=== PATIENT | female | born 1940 | race Caucasian/White ===

== ENCOUNTER 2016-11-17 09:33 | Emergency (ER) | payer MEDICARE, BC ==
[2016-11-17 10:10] VITALS: BP 146/78
--- NOTE | 2016-11-17 10:18 | EDM.PDOC ---
[id number] TO STERIOD INJECTION Time Seen by Provider: 11/17/16 10:00 Source: Reports: Patient History Limitations: Reports: No limitations - History of Present Illness INITIAL COMMENTS - FREE TEXT/NARRATIVE: 75-year-old female received several thoracic steroid injections for local pain yesterday, this morning her face feels flushed and her thought it looked erythematous. She was concerned she may be having an allergic reaction to the shots so came in to be seen. She has no other symptoms, no shortness of breath, chest pain, palpitations, hives or rash elsewhere Location, Skin: Reports: face Characteristics: Reports: erythematous Associated symptoms: Reports: denies other symptoms - Related Data Allergies/ADRs: Allergies Allergy/AdvReac Type Severity Reaction Status Date / Time codeine Allergy Hives Verified 11/02/16 08:50 Iodinated Contrast Media - Allergy Hives Verified 11/02/16 08:50 Oral and [Iodinated Contrast Media - IV Dye] Sulfa (Sulfonamide Allergy Hives Verified 11/02/16 08:50 Antibiotics) thimerosal Allergy Hives Verified 11/02/16 08:50 Home Meds: Home Meds Aspirin [Adult Low Dose Aspirin EC] 81 mg PO DAILY 08/06/13 [History] Gabapentin [Neurontin] 300 mg PO BID 08/06/13 [History] [place]-3 Fatty Acids [Fish Oil] 500 mg PO DAILY 08/06/13 [History] Omeprazole 20 mg PO DAILY 08/06/13 [History] Simvastatin [Zocor] 40 mg PO BEDTIME 08/06/13 [History] Lidocaine 5% [Lidoderm 5%] 1 patch TOP BEDTIME PRN 10/18/13 [History] Cholecalciferol (Vitamin D3) [Vitamin D3] 1,000 unit PO DAILY 06/03/16 [History] Triamterene/Hydrochlorothiazid [Triamterene-HCTZ 37.5-25 MG] 0.5 tab PO DAILY [History] Lactobacillus Acidophilus [Probiotic] 1 cap PO DAILY 06/06/16 [History] Past Medical History HEENT History: Reports: Impaired vision Cardiovascular History: Reports: High cholesterol, Hypertension, Pacemaker Musculoskeletal History: Reports: Back pain, chronic Other Musculoskeletal History: R shoulder pain Oncologic (Cancer) History: Reports: Breast Other Oncologic History: BREAST CA 20 YEARS AGO Other Dermatologic History: FACE FLUSH - Past Surgical History Female Surgical History: Reports: Other (see below) Other Female Surgeries/Procedures: CORNELL MASTECTOMY Other Musculoskeletal Surgeries/Procedures:: YESTERDAY HAD STERIODS INJECTION IS QUESTIONING ALLERGIC REACTION FACE FLUSH Social & Family History - Tobacco Use Smoking Status *Q: Never Smoker Second Hand Smoke Exposure: No - Caffeine Use Caffeine Use: Reports: Coffee - Alcohol Use Days Per Week of Alcohol Use: 0 - Recreational Drug Use Recreational Drug Use: No ED ROS ALLERGIC REACTION - Review of Systems Review Of Systems: See Below Constitutional: Denies: fever, chills Respiratory: Denies: Shortness of Breath Cardiovascular: Denies: Chest pain GI/Abdominal: Denies: Abdominal pain, Nausea, Vomiting Musculoskeletal: Reports: back pain (Chronic) Skin: Reports: rash, erythema (Of the face and forehead only) Neurological: Reports: No Symptoms ED EXAM GENERAL NO PERIP PULSE - Physical Exam Exam: See Below Exam Limited By: No limitations General Appearance: alert, no apparent distress Throat/Mouth: Normal inspection Head: atraumatic Neck: normal inspection Respiratory/Chest: no respiratory distress, lungs clear Cardiovascular: regular rate, rhythm Neurological: alert, oriented Psychiatric: normal affect, normal mood Skin Exam: Warm, Dry, Erythema (There is some erythema over the face bilaterally and forehead, no warmth) Course - Vital Signs Last Recorded V/S: Last Vital Signs Temp 99.1 F 11/17/16 09:45 Pulse 96 11/17/16 09:45 Resp 18 11/17/16 09:45 BP 146/78 H 11/17/16 09:45 Pulse Ox - Re-Assessments/Exams Free Text/Narrative Re-Assessment/Exam: 11/17/16 10:18 Explained to the patient that this is more likely a side effect rather than an allergic reaction. Cool compresses may help but I would avoid further medications to treat this mild reaction. In the future injections will have to be weighed with the benefits versus side effects. Departure - Departure Time of Disposition: 11:31 Disposition: Home, Self-Care 01 Condition: good Clinical Impression: Facial erythema, Medication side effects Referrals: Ashley Sapp MD [Primary Care Provider] - Forms: ED Department Discharge Care Plan Goals: Cool compresses to the face may help, return anytime if worsening such as more widespread reaction or difficulty breathing. Further injections may continue but side effects are to be expected and benefits will have to be weighed against any potential further side effects.
== END 2016-11-17 11:05 | disposition home or self-care (01) ==
LOC: JP.ED 09:33
DX: L53.0 Toxic erythema (principal); T38.0X5A Adverse effect of glucocorticoids and synthetic analogues, initial encounter; E78.00 Pure hypercholesterolemia, unspecified; I10 Essential (primary) hypertension; Z79.899 Other long term (current) drug therapy; Z88.5 Allergy status to narcotic agent; Z91.041 Radiographic dye allergy status; Z88.2 Allergy status to sulfonamides; Z88.8 Allergy status to other drugs, medicaments and biological substances; Z79.82 Long term (current) use of aspirin
CPT/HCPCS: 99282; 99283

== ENCOUNTER 2017-02-21 07:37 | Day surgery (SDC) | payer MEDICARE, BC ==
[2017-02-21] MEDS ORDERED: Dextrose 5%-Lactated Ringers 1,000 ML IV SCH (08:15)
[2017-02-21] MEDS ORDERED: Propofol 200 MG/20 ML SDV ONE ×2 (09:02→09:06)
[2017-02-21] MEDS ORDERED: fentaNYL 100 MCG/2 ML SDV ONE ×3 (09:03→09:07)
[2017-02-21] MEDS ORDERED: Midazolam 1 MG/ML 2 ML SDV ONE (09:06)
[2017-02-21] MEDS ORDERED: Ondansetron 4 MG/2 ML SDV ONE (10:01)
[2017-02-21] MEDS ORDERED: Ondansetron 4 MG/2 ML SDV IVPUSH ONE (11:00)
[2017-02-21] MEDS ORDERED: Scopolamine 1.5 MG Transdermal Patch TRDERM PRN (12:52)
[2017-02-21 12:55] VITALS: BP 106/64
[2017-02-21] MEDS ORDERED: Metoclopramide 10 MG/2 ML SDV IVPUSH ONE (13:00)
--- NOTE | 2017-02-24 08:36 | OR ---
DATE OF PROCEDURE: 02/21/2017 PREOPERATIVE DIAGNOSIS: Family history of colon carcinoma. POSTOPERATIVE DIAGNOSES: 1. Family history of colon carcinoma with single small polyp located at splenic flexure. 2. Extensive uncomplicated left colonic diverticulosis. OPERATIVE PROCEDURE: Flexible colonoscopy with polypectomy by snare technique ([id number]). ANESTHESIA: IV sedation. INDICATION FOR PROCEDURE: This is a 76-year-old female presenting for follow-up colonoscopy. She has a strong family history of colon carcinoma and the plan is to proceed with colonoscopy with biopsies and/or polypectomy as indicated. Potential risks including bleeding and perforation were discussed, and the patient wishes to proceed. DETAILS OF PROCEDURE: The patient was taken to the operating room and placed in a left lateral decubitus position. IV sedation was administered, after which the colonoscope was passed into the rectum with retroflexion revealing uncomplicated hemorrhoidal columns. The scope was eventually passed to the level of the cecum. The prep was fairly good. There was only a small amount of liquid stool present. The patient was noted to have quite extensive left colonic diverticulosis, but this was otherwise uncomplicated. There was noted to be a single small polyp roughly around 3-4 mm in the splenic flexure. Apart from that, there were no additional areas of polyps or other signs of neoplasia or colitis. As one came back from the cecum, the polyp was once again encountered and this encircled at its base with the snare and cauterized off. This was aspirated and sent this for histologic evaluation. Good hemostasis was noted at the polypectomy site. The remainder of the exam was otherwise unremarkable and the procedure then concluded. The patient was taken to the recovery room in satisfactory condition. Plan will be to give the patient a call with regard to the pathology report. If this is an adenomatous polyp, one would probably need to repeat the colonoscopy in 1-2 years. Otherwise, if it is hyperplastic polyp, we will then go ahead with 5-year followup unless patient's general condition is not more tenuous than present. Eamon Valentin MD /[id number]
== END 2017-02-21 13:19 | disposition home or self-care (01) ==
LOC: JP.SDS 07:37
PROVIDERS: ATTEND Surgery
DX: Z12.11 Encounter for screening for malignant neoplasm of colon (principal); K63.5 Polyp of colon; K57.30 Diverticulosis of large intestine without perforation or abscess without bleeding; I10 Essential (primary) hypertension; E78.5 Hyperlipidemia, unspecified; K21.9 Gastro-esophageal reflux disease without esophagitis; Z80.0 Family history of malignant neoplasm of digestive organs; Z88.1 Allergy status to other antibiotic agents; Z88.2 Allergy status to sulfonamides; Z91.041 Radiographic dye allergy status; Z88.8 Allergy status to other drugs, medicaments and biological substances
CPT/HCPCS: 45385; A9270; J2250; J2405; J2704; J3010; J7042; 88305

== ENCOUNTER 2017-12-10 09:20 | Emergency (ER) | payer MEDICARE, BC ==
[2017-12-10 10:13] VITALS: BP 144/82
--- NOTE | 2017-12-10 10:36 | EDM.PDOC ---
ED HPI GENERAL MEDICAL PROBLEM - General Chief Complaint: Genitourinary Problem Stated Complaint: RECURRENT UTI Time Seen by Provider: 12/10/17 10:15 Source of Information: Reports: Patient History Limitations: Reports: No Limitations - History of Present Illness INITIAL COMMENTS - FREE TEXT/NARRATIVE: 77-year-old female was recently diagnosed with a UTI, started on cephalexin for a culture result of Escherichia coli. She finished her antibiotic 3 days ago and feels his symptoms are coming back. No fevers or chills, no back pain, chest some urinary frequency and slight pressure sensation. Onset: Gradual (Over the past few days) - Related Data Allergies Allergy/AdvReac Type Severity Reaction Status Date / Time amoxicillin [From Augmentin] Allergy Cannot Verified 02/21/17 08:09 Remember clavulanic acid Allergy Cannot Verified 02/21/17 08:09 [From Augmentin] Remember codeine Allergy Hives Verified 02/21/17 08:09 fluticasone [From Flonase] Allergy Cannot Verified 02/21/17 08:09 Remember Iodinated Contrast- Oral and Allergy Hives Verified 02/21/17 08:09 IV Dye [Iodinated Contrast Media - IV Dye] Sulfa (Sulfonamide Allergy Hives Verified 02/21/17 08:09 Antibiotics) thimerosal Allergy Hives Verified 02/21/17 08:09 Home Meds: Home Meds Aspirin [Adult Low Dose Aspirin EC] 81 mg PO DAILY 08/06/13 [History] Gabapentin [Neurontin] 900 mg PO BID 08/06/13 [History] [place]-3 Fatty Acids [Fish Oil] 500 mg PO BID 08/06/13 [History] Omeprazole 20 mg PO DAILY 08/06/13 [History] Simvastatin [Zocor] 40 mg PO BEDTIME 08/06/13 [History] Lidocaine 5% [Lidoderm 5%] 1 patch TOP BEDTIME PRN 10/18/13 [History] Cholecalciferol (Vitamin D3) [Vitamin D3] 5,000 unit PO DAILY 06/03/16 [History] Triamterene/Hydrochlorothiazid [Triamterene-HCTZ 37.5-25 MG] 0.5 tab PO DAILY [History] Lactobacillus Acidophilus [Probiotic] 1 cap PO DAILY 06/06/16 [History] Loratadine [Claritin] 10 mg PO DAILY 02/07/17 [History] Triamcinolone Acetonide [Kenalog 0.1% Crm] 1 applic TOP BID 02/07/17 [History] Ubidecarenone [Coenzyme Q10] 100 mg PO DAILY 02/07/17 [History] Latanoprost [Xalatan 0.005% Ophth Soln] 2.5 ml EYEBOTH BEDTIME 02/21/17 [History ] Past Medical History HEENT History: Reports: Allergic Rhinitis, Cataract, Impaired Vision Cardiovascular History: Reports: High Cholesterol, Hypertension, Pacemaker Gastrointestinal History: Reports: Cholelithiasis, Chronic Constipation, Colon Polyp, GERD Genitourinary History: Reports: UTI, Recurrent 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, Fibroids, Musculoskeletal History: Reports: Arthritis, Back Pain, Chronic, Neck Pain, Chronic Other Musculoskeletal History: R shoulder pain Endocrine/Metabolic History: Reports: Obesity/BMI 30+ Oncologic (Cancer) History: Reports: Breast Other Oncologic History: BREAST CA 20 YEARS AGO Dermatologic History: Reports: Eczema Other Dermatologic History: FACE FLUSH - Infectious Disease History Infectious Disease History: Reports: Chicken Pox, Mumps - Past Surgical History HEENT Surgical History: Reports: Adenoidectomy, Cataract Surgery, Tonsillectomy Cardiovascular Surgical History: Reports: Pacer GI Surgical History: Reports: Appendectomy, Cholecystectomy, Colonoscopy Female Surgical History: Reports: Breast Biopsy, Hysterectomy, Mastectomy Endocrine Surgical History: Reports: None Musculoskeletal Surgical History: Reports: None Oncologic Surgical History: Reports: Biopsy of Breast, Mastectomy Dermatological Surgical History: Reports: None Social & Family History - Tobacco Use Smoking Status *Q: Never Smoker - Caffeine Use Caffeine Use: Reports: Coffee, Soda, Tea ED ROS GENERAL - Review of Systems Review Of Systems: See Below Constitutional: Denies: Fever, Chills Respiratory: Denies: Shortness of Breath GI/Abdominal: Denies: Abdominal Pain, Nausea, Vomiting : Reports: Urgency. Denies: Dysuria Skin: Reports: No Symptoms Neurological: Reports: No Symptoms ED EXAM, RENAL/ - Physical Exam Exam: See Below Exam Limited By: No Limitations General Appearance: Alert, No Apparent Distress Respiratory/Chest: No Respiratory Distress GI/Abdominal: Non-Tender Back Exam: No: CVA Tenderness (R), CVA Tenderness (L) Neurological: Alert, Oriented Psychiatric: Normal Affect, Normal Mood Skin Exam: Warm, Dry Course - Vital Signs Last Recorded V/S: Last Vital Signs Temp 98.3 F 12/10/17 10:20 Pulse 93 12/10/17 10:20 Resp 18 12/10/17 10:20 BP 144/82 H 12/10/17 10:20 Pulse Ox 97 12/10/17 10:20 - Orders/Labs/Meds Orders: Active Orders 24 hr Category Date Time Status CULTURE URINE [RM] Stat Lab 12/10/17 10:48 Received UA W/MICROSCOPIC [URIN] Urgent Lab 12/10/17 10:29 Ordered Labs: Laboratory Tests 12/10/17 Range/Units 10:29 Urine Color Yellow Urine Appearance Cloudy Urine pH 8.0 (4.5-8.0) Ur Specific [place] 1.015 (1.008-1.030) Urine Protein Negative (NEGATIVE) mg/dL Urine Glucose (UA) Normal (NEGATIVE) mg/dL Urine Ketones Negative (NEGATIVE) mg/dL Urine Occult Blood Large (NEGATIVE) Urine Nitrite Negative (NEGATIVE) Urine Bilirubin Negative (NEGATIVE) Urine Urobilinogen Normal (NORMAL) mg/dL Ur Leukocyte Esterase Large (NEGATIVE) Urine RBC 20-30 H (0-5) Urine WBC Packed H (0-5) Ur Epithelial Cells Rare Amorphous Sediment Not seen Urine Bacteria Few Urine Mucus Not seen - Re-Assessments/Exams Free Text/Narrative Re-Assessment/Exam: 12/10/17 10:35 A catheter UA was obtained for accuracy. 12/10/17 10:46 UA was abnormal with packed WBCs, 20-30 RBCs and a few bacteria. This was cultured. Patient was placed on ciprofloxacin 500 twice daily for 5 days which has worked well for her in the past and we will be in touch with her with culture results in a few days if changes are needed. Departure - Departure Time of Disposition: 11:06 Disposition: Home, Self-Care 01 Condition: Good Clinical Impression: UTI, Urinary tract infectious disease - Discharge Information Instructions: Urinary Tract Infection, Adult Referrals: Simon Chavez MD [Primary Care Provider] - Forms: ED Department Discharge Care Plan Goals: Take antibiotic twice daily for 5 days, drink lots of water and continue Pyridium if needed. Return if worsening such as fever, increased pain, or vomiting the medication. We will contact you in 2-3 days if changes are necessary. - My Orders Last 24 Hours: My Active Orders 12/10/17 10:29 UA W/MICROSCOPIC [URIN] Urgent 12/10/17 10:48 CULTURE URINE [RM] Stat - Assessment/Plan Last 24 Hours: My Active Orders 12/10/17 10:29 UA W/MICROSCOPIC [URIN] Urgent 12/10/17 10:48 CULTURE URINE [RM] Stat
== END 2017-12-10 11:06 | disposition home or self-care (01) ==
LOC: JP.ED 09:20
DX: N39.0 Urinary tract infection, site not specified (principal); I10 Essential (primary) hypertension; E78.00 Pure hypercholesterolemia, unspecified; Z79.899 Other long term (current) drug therapy; Z79.82 Long term (current) use of aspirin; Z88.1 Allergy status to other antibiotic agents; Z88.2 Allergy status to sulfonamides; Z88.8 Allergy status to other drugs, medicaments and biological substances; Z88.5 Allergy status to narcotic agent; Z91.041 Radiographic dye allergy status
CPT/HCPCS: 81001; 87086; 87088; 87186; 99284

== ENCOUNTER 2019-04-27 13:42 | Emergency (ER) | payer MEDICARE, BC ==
[2019-04-27 14:06] VITALS: BP 142/65; PULSE 83
--- NOTE | 2019-04-27 15:18 | EDM.PDOC ---
ED HPI GENERAL MEDICAL PROBLEM - General Chief Complaint: Genitourinary Problem Stated Complaint: CONCERNED ABOUT UTI Time Seen by Provider: 04/27/19 15:00 Source of Information: Reports: Patient History Limitations: Reports: No Limitations - History of Present Illness INITIAL COMMENTS - FREE TEXT/NARRATIVE: 78 yo female presents to ER for concern regarding recurrent UTI which started with urinary frequency overnight. She had to getup to urinate 2-3 times more than usual. She noted a headache this am which has improved without intervention. Tatiana has ahd 3 urinary tract infections over the course of the last 1-2 year. Patient's last UTI was 6 or more months ago and was treated with an alternate antibiotic without improvement and needed to be change to Ciprofloxacin. Patient is aware of the risks with Ciprofloxacin but states nothing else seems to work. Patient is allergy to Sulfa Antibiotics and PCN which limits treatment options a bit more. Patient denies renal insufficiencies and aortic aneurysms. Patient has burning and urgency this which is similar to symptoms in the past with infections. Patient had one episode of kidney infection and chronic back pain, patient denies new or worsening back pain at this time. Patient denies fever, nausea or vomiting or any additional concerning symptoms. - Related Data Allergies Allergy/AdvReac Type Severity Reaction Status Date / Time amoxicillin [From Augmentin] Allergy Cannot Verified 04/27/19 14:31 Remember clavulanic acid Allergy Cannot Verified 04/27/19 14:31 [From Augmentin] Remember codeine Allergy Hives Verified 04/27/19 14:31 fluticasone [From Flonase] Allergy Cannot Verified 04/27/19 14:31 Remember Iodinated Contrast Media Allergy Hives Verified 04/27/19 14:31 [Iodinated Contrast Media - IV Dye] Sulfa (Sulfonamide Allergy Hives Verified 04/27/19 14:31 Antibiotics) thimerosal Allergy Hives Verified 04/27/19 14:31 Home Meds: Home Meds Aspirin [Adult Low Dose Aspirin EC] 81 mg PO DAILY 08/06/13 [History] Gabapentin [Neurontin] 900 mg PO BID 08/06/13 [History] [place]-3 Fatty Acids [Fish Oil] 500 mg PO BID 08/06/13 [History] Omeprazole 20 mg PO DAILY 08/06/13 [History] Simvastatin [Zocor] 40 mg PO BEDTIME 08/06/13 [History] Lidocaine 5% [Lidoderm 5%] 1 patch TOP BEDTIME PRN 10/18/13 [History] Triamterene/Hydrochlorothiazid [Triamterene-HCTZ 37.5-25 MG] 0.5 tab PO DAILY [History] Lactobacillus Acidophilus [Probiotic] 1 cap PO DAILY 06/06/16 [History] Loratadine [Claritin] 10 mg PO DAILY 02/07/17 [History] Dorzolamide/Timolol [Cosopt 2%-0.5% Ophth Soln] 1 drop EYEBOTH DAILY 04/12/19 [ History] Ciprofloxacin [Ciprofloxacin HCl] 500 mg PO BID 7 Days #14 tab 04/27/19 [Rx] Past Medical History HEENT History: Reports: Allergic Rhinitis, Cataract, Impaired Vision Cardiovascular History: Reports: High Cholesterol, Hypertension, Pacemaker Respiratory History: Reports: None Gastrointestinal History: Reports: Cholelithiasis, Chronic Constipation, Colon Polyp, GERD Genitourinary History: Reports: UTI, Recurrent 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, Fibroids, Musculoskeletal History: Reports: Arthritis, Back Pain, Chronic, Neck Pain, Chronic Other Musculoskeletal History: R shoulder pain Neurological History: Reports: None Psychiatric History: Reports: None Endocrine/Metabolic History: Reports: Obesity/BMI 30+ Hematologic History: Reports: None Immunologic History: Reports: None Oncologic (Cancer) History: Reports: Breast Other Oncologic History: BREAST CA 20 YEARS AGO Dermatologic History: Reports: Eczema Other Dermatologic History: FACE FLUSH - Infectious Disease History Infectious Disease History: Reports: Chicken Pox, Mumps - Past Surgical History Head Surgeries/Procedures: Reports: None HEENT Surgical History: Reports: Adenoidectomy, Cataract Surgery, Tonsillectomy Cardiovascular Surgical History: Reports: Pacer GI Surgical History: Reports: Appendectomy, Cholecystectomy, Colonoscopy Female Surgical History: Reports: Breast Biopsy, Hysterectomy, Mastectomy Musculoskeletal Surgical History: Reports: None Oncologic Surgical History: Reports: Biopsy of Breast, Mastectomy Social & Family History - Tobacco Use Smoking Status *Q: Never Smoker - Caffeine Use Caffeine Use: Reports: None ED ROS GENERAL - Review of Systems Review Of Systems: ROS reveals no pertinent complaints other than HPI. ED EXAM, RENAL/ - Physical Exam Exam: See Below Exam Limited By: No Limitations General Appearance: Alert, WD/WN, No Apparent Distress Eye Exam: Bilateral Eye: EOMI, PERRL Ears: Normal External Exam, Hearing Grossly Normal Nose: Normal Inspection, Normal Mucosa Throat/Mouth: Normal Inspection, Normal Lips, Normal Teeth, Normal Voice, No Airway Compromise Head: Normocephalic Neck: Normal Inspection, Supple, Non-Tender, Full Range of Motion Respiratory/Chest: No Respiratory Distress, Lungs Clear, Normal Breath Sounds, No Accessory Muscle Use, Chest Non-Tender Cardiovascular: Normal Peripheral Pulses, Regular Rate, Rhythm, No Edema, No Gallop, Systolic Murmur (slight not new per patient) GI/Abdominal: Normal Bowel Sounds, Soft, No Organomegaly, Tender (suprapubic area ). No: Distended, Guarding, Rigid, Rebound Back Exam: Normal Inspection. No: CVA Tenderness (R), CVA Tenderness (L) Extremities: Normal Inspection, Non-Tender. No: Pedal Edema Neurological: Alert, Oriented, CN II-XII Intact, Normal Cognition, Normal Gait, Normal Reflexes, No Motor/Sensory Deficits Psychiatric: Normal Affect, Normal Mood Course - Vital Signs Last Recorded V/S: Last Vital Signs Temp 36.8 C 04/27/19 14:36 Pulse 83 04/27/19 14:36 Resp 12 04/27/19 14:36 BP 142/65 H 04/27/19 14:36 Pulse Ox 96 04/27/19 14:36 - Orders/Labs/Meds Orders: Active Orders 24 hr Category Date Time Status CULTURE URINE [RM] Stat Lab 04/27/19 14:56 Received Labs: Laboratory Tests 04/27/19 Range/Units 14:01 Urine Color Yellow (YELLOW) Urine Appearance Slightly cloudy A (CLEAR) Urine pH 6.5 (5.0-8.0) Ur Specific [place] 1.020 (1.008-1.030) Urine Protein Negative (NEGATIVE) mg/dL Urine Glucose (UA) Negative (NEGATIVE) mg/dL Urine Ketones Negative (NEGATIVE) mg/dL Urine Occult Blood Trace-intact H (NEGATIVE) Urine Nitrite Negative (NEGATIVE) Urine Bilirubin Negative (NEGATIVE) Urine Urobilinogen 1.0 (0.2-1.0) EU/dL Ur Leukocyte Esterase Moderate H (NEGATIVE) Urine RBC 0-5 (0-5) Urine WBC 30-40 H (0-5) Ur Epithelial Cells Few Amorphous Sediment Not seen Urine Bacteria Moderate Urine Mucus Not seen Departure - Departure Time of Disposition: 15:12 Disposition: Home, Self-Care 01 Clinical Impression: UTI, Urinary tract infectious disease, IBS (irritable bowel syndrome) - Discharge Information Prescriptions: Ciprofloxacin [Ciprofloxacin HCl] 500 mg PO BID 7 Days #14 tab Instructions: Urinary Tract Infection, Adult, Antibiotic Medicine, Adult Referrals: Simon Chavez MD [Primary Care Provider] - 3 Days (If not improving in 48-72 hours. Return to ER if symptoms worsen or unable to take medications) Forms: ED Department Discharge Additional Instructions: 1. Ciprofloxacin 500mg BID x 7 days (may stop two days after symptoms resolution ). 2. Tylenol 500-1000mg every 6 hours for headache, pain and fever, if needed. 3. May take AZO for urinary discomfort. 4. Increased fluid intake. Urine Culture pending and may take up to 5 days to get results. 5. You symptoms should improve in 48 to 72 hours. 6. If symptoms not improving call PCP for recommendations. 7. If worsening symptoms fever, nausea/vomiting, weakness or confused return to ER for repeat evaluation. - Problem List & Annotations (1) UTI, Urinary tract infectious disease SNOMED Code(s): 33307044 Code(s): N39.0 - URINARY TRACT INFECTION, SITE NOT SPECIFIED Status: Acute Current Visit: Yes (2) IBS (irritable bowel syndrome) SNOMED Code(s): 58035037 Code(s): K58.9 - IRRITABLE BOWEL SYNDROME WITHOUT DIARRHEA Status: Chronic Current Visit: Yes - My Orders Last 24 Hours: My Active Orders 04/27/19 14:56 CULTURE URINE [RM] Stat - Assessment/Plan Last 24 Hours: My Active Orders 04/27/19 14:56 CULTURE URINE [RM] Stat
== END 2019-04-27 15:47 | disposition home or self-care (01) ==
LOC: JP.ED 13:42
DX: N39.0 Urinary tract infection, site not specified (principal); K58.9 Irritable bowel syndrome, unspecified; E78.5 Hyperlipidemia, unspecified; I10 Essential (primary) hypertension; E66.9 Obesity, unspecified; Z88.5 Allergy status to narcotic agent; Z88.0 Allergy status to penicillin; Z88.2 Allergy status to sulfonamides; Z88.8 Allergy status to other drugs, medicaments and biological substances; Z88.1 Allergy status to other antibiotic agents; Z91.041 Radiographic dye allergy status; Z79.82 Long term (current) use of aspirin; Z95.0 Presence of cardiac pacemaker; Z68.30 Body mass index [BMI] 30.0-30.9, adult
CPT/HCPCS: 81001; 87086; 87088; 87186; 99283

== ENCOUNTER 2019-08-21 12:13 | Emergency (ER) | payer MEDICARE, BC ==
[2019-08-21 12:34] VITALS: BP 155/81; PULSE 71
--- NOTE | 2019-08-21 13:06 | EDM.PDOC ---
ED HPI GENERAL MEDICAL PROBLEM - General Chief Complaint: Allergic Reaction Stated Complaint: REACTION TO A SHOT?? Time Seen by Provider: 08/21/19 12:35 Source of Information: Reports: Patient History Limitations: Reports: No Limitations - History of Present Illness INITIAL COMMENTS - FREE TEXT/NARRATIVE: 78-year-old female with erythema and fullness of the face for the last 2 hours. She also feels like her mouth is "dry". No other symptoms, no shortness of breath or nausea or vomiting. She also has a very mild headache. No fever or chills. She received a cortisone injection in her foot yesterday, interestingly she had a similar display of symptoms after a cortisone injection in her back 1 year ago. It was also isolated to the face and took 24 hours to resolve without treatment. Onset: Gradual (Over the past 2 to 3 hours) Duration: Hour(s): Location: Reports: Face Associated Symptoms: Reports: Other ( mild headache, no other symptoms such as dyspnea throat swelling or generalized rash) Headache Pain Score (Numeric/FACES): 6 - Related Data Allergies Allergy/AdvReac Type Severity Reaction Status Date / Time amoxicillin [From Augmentin] Allergy Cannot Verified 08/21/19 12:34 Remember clavulanic acid Allergy Cannot Verified 08/21/19 12:34 [From Augmentin] Remember codeine Allergy Hives Verified 08/21/19 12:34 fluticasone [From Flonase] Allergy Cannot Verified 08/21/19 12:34 Remember Iodinated Contrast Media Allergy Hives Verified 08/21/19 12:34 [Iodinated Contrast Media - IV Dye] Sulfa (Sulfonamide Allergy Hives Verified 08/21/19 12:34 Antibiotics) thimerosal Allergy Hives Verified 08/21/19 12:34 Home Meds: Home Meds Aspirin [Adult Low Dose Aspirin EC] 81 mg PO DAILY 08/06/13 [History] Gabapentin [Neurontin] 900 mg PO BID 08/06/13 [History] [place]-3 Fatty Acids [Fish Oil] 500 mg PO BID 08/06/13 [History] Omeprazole 20 mg PO DAILY 08/06/13 [History] Simvastatin [Zocor] 40 mg PO BEDTIME 08/06/13 [History] Lidocaine 5% [Lidoderm 5%] 1 patch TOP BEDTIME PRN 10/18/13 [History] Triamterene/Hydrochlorothiazid [Triamterene-HCTZ 37.5-25 MG] 0.5 tab PO DAILY [History] Lactobacillus Acidophilus [Probiotic] 1 cap PO DAILY 06/06/16 [History] Loratadine [Claritin] 10 mg PO DAILY 02/07/17 [History] Dorzolamide/Timolol [Cosopt 2%-0.5% Ophth Soln] 1 drop EYEBOTH DAILY 04/12/19 [ History] Past Medical History HEENT History: Reports: Allergic Rhinitis, Cataract, Impaired Vision Cardiovascular History: Reports: High Cholesterol, Hypertension, Pacemaker Respiratory History: Reports: None Gastrointestinal History: Reports: Cholelithiasis, Chronic Constipation, Colon Polyp, GERD Genitourinary History: Reports: UTI, Recurrent 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: Dysfunctional Uterine Bleeding, Fibroids, Musculoskeletal History: Reports: Arthritis, Back Pain, Chronic, Neck Pain, Chronic Other Musculoskeletal History: R shoulder pain Neurological History: Reports: None Psychiatric History: Reports: None Endocrine/Metabolic History: Reports: Obesity/BMI 30+ Hematologic History: Reports: None Immunologic History: Reports: None Oncologic (Cancer) History: Reports: Breast Other Oncologic History: BREAST CA 20 YEARS AGO Dermatologic History: Reports: Eczema Other Dermatologic History: FACE FLUSH - Infectious Disease History Infectious Disease History: Reports: Chicken Pox, Mumps - Past Surgical History Head Surgeries/Procedures: Reports: None HEENT Surgical History: Reports: Adenoidectomy, Cataract Surgery, Tonsillectomy Cardiovascular Surgical History: Reports: Pacer GI Surgical History: Reports: Appendectomy, Cholecystectomy, Colonoscopy Female Surgical History: Reports: Breast Biopsy, Hysterectomy, Mastectomy Neurological Surgical History: Reports: None Musculoskeletal Surgical History: Reports: None Oncologic Surgical History: Reports: Biopsy of Breast, Mastectomy Dermatological Surgical History: Reports: None Social & Family History - Tobacco Use Smoking Status *Q: Never Smoker Second Hand Smoke Exposure: No - Caffeine Use Caffeine Use: Reports: Coffee, Soda - Recreational Drug Use Recreational Drug Use: No ED ROS ALLERGIC REACTION - Review of Systems Review Of Systems: See Below Constitutional: Denies: Fever, Chills HEENT: Denies: Throat Pain, Throat Swelling, Vision Change Respiratory: Denies: Shortness of Breath, Cough Cardiovascular: Denies: Chest Pain GI/Abdominal: Denies: Abdominal Pain, Nausea, Vomiting Skin: Reports: Other (Erythema and mild facial swelling, symmetrical across the cheeks and lower forehead) Neurological: Reports: Headache (Minimal headache, no confusion) ED EXAM GENERAL NO PERIP PULSE - Physical Exam Exam: See Below Exam Limited By: No Limitations General Appearance: Alert, No Apparent Distress Eye Exam: Bilateral Eye: Normal Inspection Throat/Mouth: Normal Inspection Head: Atraumatic, Other (Patient does have symmetric mild facial swelling of the cheeks and upper nasal bridge between the forehead eyebrows, mild erythema but no warmth or tenderness to palpation) Respiratory/Chest: No Respiratory Distress, Lungs Clear Extremities: No: Pedal Edema Neurological: Alert, Oriented Psychiatric: Normal Affect, Normal Mood Course - Vital Signs Last Recorded V/S: Last Vital Signs Temp 97.0 F 08/21/19 12:37 Pulse 71 08/21/19 12:37 Resp 16 08/21/19 12:37 BP 155/81 H 08/21/19 12:37 Pulse Ox 96 08/21/19 12:37 - Re-Assessments/Exams Free Text/Narrative Re-Assessment/Exam: 08/21/19 13:03 Patient was encouraged to use cool compresses to the face today and Benadryl 25 to 50 mg would be reasonable. This should resolve over time without worsening. She can return anytime if she develops difficulty breathing or throat swelling or more widespread erythema or rash. Departure - Departure Time of Disposition: 13:11 Disposition: Home, Self-Care 01 Clinical Impression: Facial erythema - Discharge Information Instructions: Allergies, Adult Referrals: Simon Chaevz MD [Primary Care Provider] - Forms: ED Department Discharge Care Plan Goals: Cool compresses to the face for the next few hours as well as Benadryl 25 to 50 mg every 4-6 hours may help. Return anytime if worsening such as difficulty breathing, otherwise recheck tomorrow if not improving satisfactorily. Sepsis Event Note - Evaluation Sepsis Screening Result: No Definite Risk - Focused Exam Vital Signs: Vital Signs Temp Pulse Resp BP Pulse Ox 08/21/19 12:37 97.0 F 71 16 155/81 H 96 08/21/19 12:31 97.0 F 71 16 155/81 H 96 Date Exam was Performed: 08/21/19 Time Exam was Performed: 13:50
== END 2019-08-21 13:11 | disposition home or self-care (01) ==
LOC: JP.ED 12:13
DX: L53.9 Erythematous condition, unspecified (principal); I10 Essential (primary) hypertension; E78.00 Pure hypercholesterolemia, unspecified; K21.9 Gastro-esophageal reflux disease without esophagitis; E66.9 Obesity, unspecified; Z88.0 Allergy status to penicillin; Z88.1 Allergy status to other antibiotic agents; Z88.5 Allergy status to narcotic agent; Z88.2 Allergy status to sulfonamides; Z91.041 Radiographic dye allergy status; Z79.82 Long term (current) use of aspirin; Z79.899 Other long term (current) drug therapy; Z85.3 Personal history of malignant neoplasm of breast; Z68.28 Body mass index [BMI] 28.0-28.9, adult
CPT/HCPCS: 99282; 99283

== ENCOUNTER 2020-01-02 16:25 | Emergency (ER) | payer MEDICARE, BC ==
--- NOTE | 2020-01-02 16:30 | EDM.PDOC ---
ED HPI GENERAL MEDICAL PROBLEM - General Chief Complaint: Bite:Animal, Insect Stated Complaint: PAIN RT FOOT/TICK BITE Time Seen by Provider: 01/02/20 16:45 Source of Information: Reports: Patient, Old Records, RN History Limitations: Reports: No Limitations - History of Present Illness INITIAL COMMENTS - FREE TEXT/NARRATIVE: 79 yo female pulled a tick off from between her great and 2nd toes on the right foot a week ago. Now has what appears to be a water blister in that area. Is not sure what kind of tick it was. Has a similar lump in the arch of that foot that she has no idea how it got there. The lump is uncomfortable only if she stands on it, otherwise it too is itchy. No self tx. Has not been to her doctor for this. 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: Reports: Other (see below) (none) Right Foot Pain Score (Numeric/FACES): 5 - Related Data Allergies Allergy/AdvReac Type Severity Reaction Status Date / Time amoxicillin [From Augmentin] Allergy Cannot Verified 01/02/20 16:38 Remember clavulanic acid Allergy Cannot Verified 01/02/20 16:38 [From Augmentin] Remember codeine Allergy Hives Verified 01/02/20 16:38 cortisone Allergy Hives Verified 01/02/20 16:38 fluticasone [From Flonase] Allergy Cannot Verified 01/02/20 16:38 Remember Iodinated Contrast Media Allergy Hives Verified 01/02/20 16:38 [Iodinated Contrast Media - IV Dye] Sulfa (Sulfonamide Allergy Hives Verified 01/02/20 16:38 Antibiotics) thimerosal Allergy Hives Verified 01/02/20 16:38 Home Meds: Home Meds Aspirin [Adult Low Dose Aspirin EC] 81 mg PO DAILY 08/06/13 [History] Gabapentin [Neurontin] 900 mg PO BID 08/06/13 [History] [place]-3 Fatty Acids [Fish Oil] 500 mg PO BID 08/06/13 [History] Omeprazole 20 mg PO DAILY 08/06/13 [History] Simvastatin [Zocor] 40 mg PO BEDTIME 08/06/13 [History] Lidocaine 5% [Lidoderm 5%] 1 patch TOP BEDTIME PRN 10/18/13 [History] Triamterene/Hydrochlorothiazid [Triamterene-HCTZ 37.5-25 MG] 0.5 tab PO DAILY [History] Lactobacillus Acidophilus [Probiotic] 1 cap PO DAILY 06/06/16 [History] Loratadine [Claritin] 10 mg PO DAILY 02/07/17 [History] Dorzolamide/Timolol [Cosopt 2%-0.5% Ophth Soln] 1 drop EYEBOTH DAILY 04/12/19 [ History] Triamcinolone Acetonide [Triamcinolone Acetonide 0.5%] 15 gm TOP TID #1 tube 06/12 [Rx] Past Medical History HEENT History: Reports: Allergic Rhinitis, Cataract, Impaired Vision Cardiovascular History: Reports: High Cholesterol, Hypertension, Pacemaker Respiratory History: Reports: None Gastrointestinal History: Reports: Cholelithiasis, Chronic Constipation, Colon Polyp, GERD Genitourinary History: Reports: UTI, 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 R thoracic and R hip pain Neurological History: Reports: None Psychiatric History: Reports: None Endocrine/Metabolic History: Reports: Obesity/BMI 30+ Hematologic History: Reports: None Immunologic History: Reports: None Oncologic (Cancer) History: Reports: Breast Other Oncologic History: BREAST CA 20 YEARS AGO Dermatologic History: Reports: Eczema Other Dermatologic History: FACE FLUSH - Infectious Disease History Infectious Disease History: Reports: Chicken Pox, Mumps - Past Surgical History Head Surgeries/Procedures: Reports: None HEENT Surgical History: Reports: Adenoidectomy, Cataract Surgery, Tonsillectomy Cardiovascular Surgical History: Reports: Pacer GI Surgical History: Reports: Appendectomy, Cholecystectomy, Colonoscopy Female Surgical History: Reports: Breast Biopsy, Hysterectomy, Mastectomy Neurological Surgical History: Reports: None Musculoskeletal Surgical History: Reports: None Oncologic Surgical History: Reports: Biopsy of Breast, Mastectomy Dermatological Surgical History: Reports: None Social & Family History - Caffeine Use Caffeine Use: Reports: Coffee, Soda ED ROS GENERAL - Review of Systems Review Of Systems: See Below Constitutional: Reports: No Symptoms HEENT: Reports: No Symptoms Respiratory: Reports: No Symptoms Cardiovascular: Reports: No Symptoms Skin: Reports: Rash (water-like blisters to the R foot in 2 places), Other ( pruritis at sites of her lesions) ED EXAM, ANIMAL BITE - Physical Exam Exam: See Below Exam Limited By: No Limitations General Appearance: Alert, WD/WN, No Apparent Distress Skin Exam: Normal Color, Warm/Dry, Other (There are two lumps on the R foot. One is on the sole of the foot on the arch. The other is between her great and 2nd toes. Both appear like contact dermatitis lesions with clear fluid noted beneath the skin. No open wounds to either site. ) Lymphadenopathy: Bilateral: No Adenopathy Course - Vital Signs Last Recorded V/S: Last Vital Signs Temp 36.0 C L 01/02/20 16:46 Pulse 96 01/02/20 16:46 Resp 17 01/02/20 16:46 BP 165/74 H 01/02/20 16:46 Pulse Ox 98 01/02/20 16:46 Departure - Departure Time of Disposition: 17:05 Disposition: Home, Self-Care 01 Condition: Good Clinical Impression: Contact dermatitis Qualifiers: Contact dermatitis type: allergic Contact dermatitis trigger: other trigger Qualified Code(s): L23.89 - Allergic contact dermatitis due to other agents; L23.8 - Allergic contact dermatitis due to other agents - Discharge Information *PRESCRIPTION DRUG MONITORING PROGRAM REVIEWED*: Not Applicable *COPY OF PRESCRIPTION DRUG MONITORING REPORT IN PATIENT MICK: Not Applicable Prescriptions: Triamcinolone Acetonide [Triamcinolone Acetonide 0.5%] 15 gm TOP TID #1 tube Referrals: Simon Chavez MD [Primary Care Provider] - Forms: ED Department Discharge Additional Instructions: Use the triamcinolone cream as directed. May use diphenhydramine 25-50 mg every 6 hrs as needed for itching. Recheck with Dr. Chavez as needed. Sepsis Event Note (ED) - Focused Exam Vital Signs: Vital Signs Temp Pulse Resp BP Pulse Ox 01/02/20 16:46 36.0 C L 96 17 165/74 H 98 01/02/20 16:39 36.0 C L 96 17 165/74 H 98
[2020-01-02 16:43] VITALS: BP 165/74; PULSE 96
== END 2020-01-02 17:12 | disposition home or self-care (01) ==
LOC: JP.ED 16:25
DX: L23.89 Allergic contact dermatitis due to other agents (principal); E78.00 Pure hypercholesterolemia, unspecified; I10 Essential (primary) hypertension; K21.9 Gastro-esophageal reflux disease without esophagitis; M19.90 Unspecified osteoarthritis, unspecified site; E66.9 Obesity, unspecified; Z68.29 Body mass index [BMI] 29.0-29.9, adult; Z88.1 Allergy status to other antibiotic agents; Z88.5 Allergy status to narcotic agent; Z88.8 Allergy status to other drugs, medicaments and biological substances; Z91.041 Radiographic dye allergy status; Z88.2 Allergy status to sulfonamides; Z79.82 Long term (current) use of aspirin; Z79.899 Other long term (current) drug therapy
CPT/HCPCS: 99282

== ENCOUNTER 2022-10-31 11:05 | Emergency (ER) | payer MEDICARE, BC ==
[2022-10-31] MEDS ORDERED: Sodium Chloride 0.9% 1,000 ML IV ONE (11:41)
[2022-10-31 13:09] VITALS: BP 177/64; PULSE 84
== END 2022-10-31 14:58 | disposition home or self-care (01) ==
LOC: JP.ED 11:05
DX: E86.0 Dehydration (principal); E78.00 Pure hypercholesterolemia, unspecified; I10 Essential (primary) hypertension; K21.9 Gastro-esophageal reflux disease without esophagitis; E66.9 Obesity, unspecified; Z68.26 Body mass index [BMI] 26.0-26.9, adult; Z95.0 Presence of cardiac pacemaker; Z91.041 Radiographic dye allergy status; Z88.2 Allergy status to sulfonamides; Z88.5 Allergy status to narcotic agent; Z88.8 Allergy status to other drugs, medicaments and biological substances; Z79.82 Long term (current) use of aspirin; Z79.899 Other long term (current) drug therapy
CPT/HCPCS: 36415; 80048; 81001; 85025; 96360; 99284; J7030

== ENCOUNTER 2023-02-02 09:30 | Emergency (ER) | payer MEDICARE, BC ==
[2023-02-02] MEDS ORDERED: Sodium Chloride 0.9% 1,000 ML IV ONE (11:12)
[2023-02-02] MEDS ORDERED: Sodium Chloride 0.9% 10 ML Syringe FLUSH PRN (11:12)
[2023-02-02 12:25] VITALS: BP 140/72; PULSE 64
[2023-02-02 12:54] LABS: APPEARANCE,URINE SLIGHTLY CLOUDY (CLEAR); BILIRUBIN,URINE NEGATIVE (NEGATIVE); COLOR,URINE YELLOW (YELLOW); GLUCOSE,URINE NEGATIVE (NEGATIVE); KETONES,URINE NEGATIVE (NEGATIVE); LEUKOCYTE ESTERASE,URINE NEGATIVE (NEGATIVE); NITRITE,URINE NEGATIVE (NEGATIVE); OCCULT BLOOD,URINE NEGATIVE (NEGATIVE); PH,URINE 7.5 (5.0-8.0); PROTEIN,URINE NEGATIVE (NEGATIVE)
[2023-02-02 13:02] LABS: AMORPHOUS SEDIMENT,URINE NOT SEEN; BACTERIA,URINE MODERATE; EPITHELIAL CELLS,URINE MODERATE; MUCUS,URINE FEW; RBC,URINE NOT SEEN (0-5)
== END 2023-02-02 13:55 | disposition home or self-care (01) ==
LOC: JP.ED 09:30
DX: E86.0 Dehydration (principal); R82.81 Pyuria; R82.71 Bacteriuria; E66.9 Obesity, unspecified; Z68.29 Body mass index [BMI] 29.0-29.9, adult; E78.00 Pure hypercholesterolemia, unspecified; I10 Essential (primary) hypertension; Z95.0 Presence of cardiac pacemaker; M19.90 Unspecified osteoarthritis, unspecified site; Z79.899 Other long term (current) drug therapy; Z88.1 Allergy status to other antibiotic agents; Z88.2 Allergy status to sulfonamides; Z88.5 Allergy status to narcotic agent; Z91.041 Radiographic dye allergy status; Z88.8 Allergy status to other drugs, medicaments and biological substances
CPT/HCPCS: 81001; 87086; 96360; 99284; J3490; J7030

== ENCOUNTER 2024-12-14 16:58 | Emergency (ER) | payer MEDICARE, BC ==
[2024-12-14 17:55] LABS: APPEARANCE,URINE TURBID (CLEAR); BILIRUBIN,URINE NEGATIVE (NEGATIVE); COLOR,URINE YELLOW (YELLOW); GLUCOSE,URINE NEGATIVE (NEGATIVE); KETONES,URINE NEGATIVE (NEGATIVE); LEUKOCYTE ESTERASE,URINE SMALL (NEGATIVE); NITRITE,URINE POSITIVE (NEGATIVE); OCCULT BLOOD,URINE SMALL (NEGATIVE); PROTEIN,URINE 100 mg/dL (NEGATIVE)
[2024-12-14 18:03] LABS: AMORPHOUS SEDIMENT,URINE MODERATE; BACTERIA,URINE MANY; EPITHELIAL CELLS,URINE MODERATE; MUCUS,URINE FEW; RBC,URINE 0-5 (0-5); WBC,URINE PACKED (0-5)
[2024-12-14 18:12] LABS: BASOPHILS ABSOLUTE AUTO 0.05 K/uL (0.00-0.10); BASOPHILS PERCENT AUTO 0.4 % (0.1-1.3); EOSINOPHILS ABSOLUTE AUTO 0.03 K/uL (0.00-0.40); EOSINOPHILS PERCENT AUTO 0.3 % (0.0-5.4); HEMOGLOBIN 11.9 g/dL (11.2-15.5); IMMATURE GRAN ABSOLUTE AUTO 0.05 K/uL (0.00-0.23); IMMATURE GRAN PERCENT AUTO 0.4 % (0.0-0.7); LYMPHOCYTES ABSOLUTE AUTO 0.74 K/uL (0.8-3.3); LYMPHOCYTES PERCENT AUTO 6.3 % (11.4-47.7); MEAN CORPUSCULAR HEMOGLOBIN 33.1 pg (31.6-35.5); MEAN CORPUSCULAR VOLUME 97.2 fL (81.4-99.0); MONOCYTES ABSOLUTE AUTO 0.92 K/uL (0.20-0.90); MONOCYTES PERCENT AUTO 7.8 % (3.3-12.6); NEUTROPHILS ABSOLUTE AUTO 9.99 K/uL (1.0-7.6); NEUTROPHILS PERCENT AUTO 84.8 % (40.0-78.1); PLATELET COUNT,PLT 180 K/uL (130-375); WHITE BLOOD CELL COUNT,WBC 11.8 K/uL (3.2-11.0)
[2024-12-14 18:26] LABS: CALCIUM 9.2 mg/dL (8.5-10.1); CREATININE 1.1 mg/dL (0.6-1.0); EST CRCL DRUG DOSING (CG) 30.11 mL/min; POTASSIUM,K 3.4 mmol/L (3.6-5.2)
[2024-12-14 18:27] LABS: ANION GAP 16.4 mmol/L (5.0-14.0)
[2024-12-14] MEDS: cefTRIAXone 1 GM Vial IM ONE (19:09)
[2024-12-14] MEDS: Lidocaine 1% 5 ML VIAL INJECT ONE (19:09)
[2024-12-14 19:23] VITALS: BP 109/64; PULSE 83
== END 2024-12-14 19:42 | disposition home or self-care (01) ==
LOC: JP.ED 16:58
DX: N39.0 Urinary tract infection, site not specified (principal); I10 Essential (primary) hypertension; E78.00 Pure hypercholesterolemia, unspecified; K21.9 Gastro-esophageal reflux disease without esophagitis; E66.9 Obesity, unspecified; Z88.0 Allergy status to penicillin; Z88.2 Allergy status to sulfonamides; Z91.041 Radiographic dye allergy status; Z88.8 Allergy status to other drugs, medicaments and biological substances; Z79.899 Other long term (current) drug therapy; Z90.49 Acquired absence of other specified parts of digestive tract; Z90.710 Acquired absence of both cervix and uterus; Z68.24 Body mass index [BMI] 24.0-24.9, adult
CPT/HCPCS: 36415; 80048; 81001; 85025; 87086; 87088; 87186; 96372; 99284; J0696; J2003

== ENCOUNTER 2025-03-22 09:48 | Emergency (ER) | payer MEDICARE, BC ==
[2025-03-22 10:12] VITALS: BP 128/78; PULSE 77
[2025-03-22 10:20] LABS: APPEARANCE,URINE CLOUDY (CLEAR); GLUCOSE,URINE NEGATIVE (NEGATIVE); OCCULT BLOOD,URINE TRACE-INTACT (NEGATIVE)
[2025-03-22 10:21] LABS: SQUAMOUS EPITHELIAL CELLS,UR FEW /HPF
== END 2025-03-22 10:48 | disposition home or self-care (01) ==
LOC: JP.ED 09:48
DX: N30.00 Acute cystitis without hematuria (principal); I10 Essential (primary) hypertension; K21.9 Gastro-esophageal reflux disease without esophagitis; E66.9 Obesity, unspecified; Z88.5 Allergy status to narcotic agent; Z88.8 Allergy status to other drugs, medicaments and biological substances; Z91.041 Radiographic dye allergy status; Z88.2 Allergy status to sulfonamides; Z79.899 Other long term (current) drug therapy; Z90.49 Acquired absence of other specified parts of digestive tract; Z90.710 Acquired absence of both cervix and uterus
CPT/HCPCS: 81001; 99283

== ENCOUNTER 2025-06-04 07:57 | Emergency (ER) | payer MEDICARE, BC ==
[2025-06-04 08:18] LABS: APPEARANCE,URINE SLIGHTLY CLOUDY (CLEAR); GLUCOSE,URINE NEGATIVE (NEGATIVE); OCCULT BLOOD,URINE NEGATIVE (NEGATIVE)
[2025-06-04 08:27] LABS: SQUAMOUS EPITHELIAL CELLS,UR MANY /HPF; UROTHELIAL CELLS,URINE NOT SEEN /HPF
[2025-06-04 08:42] LABS: BASOPHILS ABSOLUTE AUTO 0.05 K/uL (0.00-0.10); BASOPHILS PERCENT AUTO 0.9 % (0.1-1.3); EOSINOPHILS ABSOLUTE AUTO 0.26 K/uL (0.00-0.40); EOSINOPHILS PERCENT AUTO 4.6 % (0.0-5.4); IMMATURE GRAN PERCENT AUTO 0.4 % (0.0-0.7); LYMPHOCYTES ABSOLUTE AUTO 1.32 K/uL (0.8-3.3); LYMPHOCYTES PERCENT AUTO 23.2 % (11.4-47.7); MONOCYTES ABSOLUTE AUTO 0.37 K/uL (0.20-0.90); MONOCYTES PERCENT AUTO 6.5 % (3.3-12.6); NEUTROPHILS ABSOLUTE AUTO 3.67 K/uL (1.0-7.6); NEUTROPHILS PERCENT AUTO 64.4 % (40.0-78.1); PLATELET COUNT,PLT 248 K/uL (130-375); RED BLOOD CELL COUNT 4.02 M/uL (3.77-5.24); WHITE BLOOD CELL COUNT,WBC 5.7 K/uL (3.2-11.0)
[2025-06-04 08:43] LABS: IMMATURE GRAN ABSOLUTE AUTO 0.02 K/uL (0.00-0.23)
[2025-06-04 08:57] LABS: BLOOD UREA NITROGEN,BUN 12.0 mg/dL (7-18); CARBON DIOXIDE,CO2 29.0 mmol/L (21-32); CHLORIDE,CL 103.0 mmol/L (100-108); CREATININE 0.9 mg/dL (0.6-1.0); EST CRCL DRUG DOSING (CG) 38.49 mL/min; ESTIMATED GFR 63.0 mL/min (>60); GLUCOSE RANDOM 102.0 mg/dL (74-106); POTASSIUM,K 4.1 mmol/L (3.6-5.2); SODIUM,NA 141.0 mmol/L (140-148)
[2025-06-04 09:31] VITALS: BP 160/72; PULSE 70
== END 2025-06-04 09:38 | disposition home or self-care (01) ==
LOC: JP.ED 07:57
DX: R23.2 Flushing (principal); I10 Essential (primary) hypertension; E66.9 Obesity, unspecified; E78.00 Pure hypercholesterolemia, unspecified; Z88.0 Allergy status to penicillin; Z88.8 Allergy status to other drugs, medicaments and biological substances; Z88.2 Allergy status to sulfonamides; Z91.041 Radiographic dye allergy status; Z79.899 Other long term (current) drug therapy; Z90.49 Acquired absence of other specified parts of digestive tract; Z90.710 Acquired absence of both cervix and uterus; Z68.28 Body mass index [BMI] 28.0-28.9, adult
CPT/HCPCS: 36415; 80048; 81001; 83605; 85025; 99283; A9270